=== PATIENT | male | born 1955 | race Caucasian/White ===

== ENCOUNTER → 2023-06-23 | Outpatient (CLI) | payer MEDICARE, OTHER ==
[~2023-06-23] MED LIST: AMARYL4 MG PO; ASPIRIN E.C. 8181 MG PO; AYR SALINE GEL1 NS; AYR SALINE MIST50 ML NS; BRILINTA90 MG PO; CEPHALEXIN500 M1 PO; CRESTOR 10MG10 MG PO; FLOMAX 0.40.4 MG/CAP PO; MOBIC15 MG PO; MULTI VITAMINS1 TAB PO; NITROSTAT0.4 MG/TAB SL; NORCO 325 MG-7.1 TAB; PAXIL 20MG20 MG PO; PERCOCET 325 MG1 TA2 PO; PRILOSEC 20MG20 MG PO; PROAIR HFA0.09 MG/AC IH; REMERON 15M15 MG/TA1; TOPROL XL 50MG50 MG PO; VITAMIN D 50,1.25 MG PO; VITAMINC1000TA; ZESTRIL 5MG5 MG PO; ZYRTEC10MGSGL
== END ==
LOC: MHCPAIN 14:09
DX: M47.816 Spondylosis without myelopathy or radiculopathy, lumbar region (principal); M54.50 Low back pain, unspecified; M53.3 Sacrococcygeal disorders, not elsewhere classified
CPT/HCPCS: G0463

== ENCOUNTER → 2023-07-29 | Outpatient (CLI) | payer MEDICARE, OTHER | LOC: MHCPAIN 10:01 | DX: M47.816 Spondylosis without myelopathy or radiculopathy, lumbar region (principal); M48.061 Spinal stenosis, lumbar region without neurogenic claudication; M25.511 Pain in right shoulder | CPT/HCPCS: G0463 ==

== ENCOUNTER → 2024-05-05 | Outpatient (CLI) | payer MEDICARE, OTHER ==
[~2024-05-05] MED LIST changes: +OXY IR5 MG PO; +ULTRAM 50MG TAB50 MG PO
== END ==
LOC: COL.RAD 15:32
DX: M47.816 Spondylosis without myelopathy or radiculopathy, lumbar region (principal); M43.9 Deforming dorsopathy, unspecified; S83.241A Other tear of medial meniscus, current injury, right knee, initial encounter; W18.30XA Fall on same level, unspecified, initial encounter